=== PATIENT | male | born 1940 | race Caucasian/White ===

== ENCOUNTER → 2017-08-20 | Outpatient (CLI) | payer MEDICARE ==
[~2017-08-20] MED LIST: ASPI-1197 PO; CALC-1062 PO; EZET1TAB17 PO; GLUCOSAMINE CHONDRO PO; LISI10TA7 PO; METO25TA6 PO; PANT40TA25 PO; TAMS0.4C32 PO; [UNRECOGNIZED DRUG - OTHER] PO
[2017-08-20 16:17] LABS: BASOPHILS % (AUTO) 0.5 % (0.0-5.0); HEMATOCRIT 32.7 % (42-54); MEAN CORPUSCULAR HEMOGLOBIN 30.9 pg (27.0-33.0); MEAN CORPUSCULAR HGB CONC 34.9 g/dL (32.0-36.0); MEAN CORPUSCULAR VOLUME 88.4 fL (79-99); MONOCYTES % (AUTO) 9.9 % (3.0-13.0); NEUTROPHILS % (AUTO) 74.6 % (40.0-77.0); PLATELET COUNT (AUTO) 317 K/uL (130-400); RED CELL DISTRIBUTION WIDTH 16.2 % (11.0-15.5); WHITE BLOOD COUNT (AUTO) 5.2 K/uL (4.8-10.8)
[2017-08-20 16:17] LABS: APPEARANCE,URINE Clear (CLEAR); BILIRUBIN,URINE Negative (NEGATIVE); COLOR,URINE Yellow (YELLOW); GLUCOSE, URINE (UA) Negative (NEGATIVE); KETONES,URINE Negative (NEGATIVE); LEUKOCYTE ESTERASE ,URINE Negative (NEGATIVE); NITRATE,URINE Negative (NEGATIVE); OCCULT BLOOD,URINE Negative (NEGATIVE); PROTEIN,URINE Negative (NEGATIVE)
[2017-08-20 16:24] LABS: CREATININE 0.9 mg/dL (0.5-1.5); POTASSIUM 4.7 mmol/L (3.5-5.1)
== END ==
LOC: LAB 15:18
PROVIDERS: ATTEND Internal Medicine Cardiovascular Disease
DX: E78.5 Hyperlipidemia, unspecified (principal)
CPT/HCPCS: 36415; 80048; 81003; 82043; 84443; 85025; 93005

== ENCOUNTER → 2017-08-31 | Outpatient (CLI) | payer MEDICARE ==
[2017-08-31 17:05] LABS: BASOPHILS % (AUTO) 0.4 % (0.0-5.0); EOSINOPHILS % (AUTO) 2.8 % (0.0-8.0); HEMATOCRIT 35.1 % (42-54); LYMPHOCYTES % (AUTO) 14.3 % (21.0-51.0); MEAN CORPUSCULAR HGB CONC 34.9 g/dL (32.0-36.0); MONOCYTES % (AUTO) 11.7 % (3.0-13.0); NEUTROPHILS % (AUTO) 70.8 % (40.0-77.0); NUCLEATED RED BLOOD CELLS 0.1 % (0.0-0.19); PLATELET COUNT (AUTO) 328 K/uL (130-400); RED BLOOD CELL COUNT(AUTO) 3.95 MIL/uL (4.50-6.20); RED CELL DISTRIBUTION WIDTH 16.2 % (11.0-15.5); WHITE BLOOD COUNT (AUTO) 5.1 K/uL (4.8-10.8)
[2017-08-31 17:17] LABS: CREATININE 0.8 mg/dL (0.5-1.5); POTASSIUM 4.6 mmol/L (3.5-5.1)
== END ==
LOC: LAB 16:40
PROVIDERS: ATTEND Family Medicine
DX: E87.1 Hypo-osmolality and hyponatremia (principal)
CPT/HCPCS: 36415; 80048; 85025

== ENCOUNTER 2018-01-24 00:17 | Emergency (ER) | payer MEDICARE ==
[2018-01-24] MEDS ORDERED: OXYMETAZOLINE HCL SPRAY 15 ML BOTTLE ONE (00:31)
== END 2018-01-24 17:40 | disposition home or self-care (01) ==
LOC: EDH 00:17
DX: R04.0 Epistaxis (principal); E78.5 Hyperlipidemia, unspecified; I10 Essential (primary) hypertension
CPT/HCPCS: 30901

== ENCOUNTER 2018-09-17 19:12 | Emergency (ER) | payer MEDICARE | END 2018-09-17 21:25 | disposition home or self-care (01) | LOC: EDH 19:12 | DX: S62.662A Nondisplaced fracture of distal phalanx of right middle finger, initial encounter for closed fracture (principal); I10 Essential (primary) hypertension; E78.5 Hyperlipidemia, unspecified; Z90.49 Acquired absence of other specified parts of digestive tract; W18.39XA Other fall on same level, initial encounter; Y93.01 Activity, walking, marching and hiking; Y92.89 Other specified places as the place of occurrence of the external cause; Y99.8 Other external cause status | CPT/HCPCS: 73130 ==

== ENCOUNTER 2025-02-16 23:41 | Emergency (ER) | payer MEDICARE ==
[~2025-02-16] VITALS: Ht 165.1 cm; Wt 71.2 kg
[~2025-02-16 23:41] MED LIST changes: +EZET-80 PO; -EZET1TAB17 PO; +LISI10TA24 PO; -LISI10TA7 PO; -PANT40TA25 PO; +PANT40TA54 PO
--- NOTE | 2025-02-17 00:10 | ERN ---
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 He can talk with the passing your valve in his alert and oriented. He comes in because he was using his feeding jejunostomy tube as usual with the pump when he had severe emesis of undiluted tube feeds. He comes in to see if the tube is clogged. He has no other systemic complaints. Allergies: Coded Allergies: No Known Drug Allergies (Unverified Allergy, Unknown, 01/15/16) Home Meds Reported Medications [Glucosamine Chondro] No Conflict Check, 1 TBS PO BID 01/15/16 Calcium Carbonate/Vitamin D3 (Caltrate 600 + D Soft Chew Tab) 1 Each Tab.chew, 1 EACH PO BID, TAB.CHEW 01/15/16 [Centrum Vit] No Conflict Check, 1 CAP PO BID 01/15/16 Aspirin (Aspirin) 81 Mg Tab.chew, 81 MG PO DAILY, TAB.CHEW 01/15/16 Lisinopril (Lisinopril) 10 Mg Tablet, 10 MG PO BID, TAB 01/15/16 Ezetimibe/Simvastatin (Vytorin 10-20 mg Tablet) 1 Each Tablet, 1 EACH PO DAILY, TAB 01/15/16 Tamsulosin HCl (Tamsulosin HCl) 0.4 Mg Cap.er.24h, 0.4 MG PO HS, CAPSULE.DR 01/15/16 Metoprolol Tartrate (Metoprolol Tartrate) 25 Mg Tablet, 25 MG PO BID, TAB 01/15/16 Pantoprazole Sodium (Pantoprazole Sodium) 40 Mg Tablet.dr, 40 MG PO BID, TAB 01/15/16 Past Medical History Past Medical History: Other Medical History Other: THROAT CA Past Surgical History: Other Surgical History Other: TRACH, PEG tube converted to a J-tube EENTM: (-) eye pain, (-) blurred vision, (-) tearing, (-) double vision, (-) ear pain, (-) ear discharge, (-) nose pain, (-) nose congestion, (-) throat pain, (-) Throat swelling, (-) mouth pain, (-) tooth pain, (-) mouth swelling, (-) other documentation Respiratory: (+) cough Cardiovascular: (-) chest pain, (-) edema, (-) palpitations, (-) syncope, (-) dyspnea on exertion, (-) other documentation Gastrointestinal/Abdominal: (+) vomiting Genitourinary: (-) penile discharge, (-) dysuria, (-) frequency, (-) hematuria, (-) pain, (-) other documentation Musculoskeletal: (-) Neck pain, (-) back pain, (-) Flank Pain, (-) joint pain, (-) joint swelling, (-) muscle pain, (-) muscle stiffness, (-) gout, (-) other documentation Physical Exam General Appearance: (+) mild distress Orientation: (+) alert, (+) oriented x 3 Head/Face Trauma: No Eye: bilateral eye normal inspection, bilateral eye PERRL, bilateral eye EOMI Ear, Nose, Throat: (+) hearing grossly normal Ear, Nose, Throat Comment Tracheostomy tube in place with a Passy Lisa valve. Tissue surrounding the tracheostomy tube are healthy. Neck: (+) normal inspection, (+) supple, (+) full range of motion Respiratory: (+) chest non-tender, (+) lungs clear, (+) well ventilated Heart: (+) regular, (+) no gallop Vascular: (+) no edema, (+) normal peripheral pulse Gastrointestinal: (+) soft, (+) non-tender Gastrointestinal Comment Feeding jejunostomy tube in place surrounding tissues healthy. Results Laboratory and Microbiology Lab and Micro Result Laboratory Tests Test 02/17/25 00:42 White Blood Count 7.0 K/uL (4.8-10.8) Red Blood Count 3.22 MIL/uL (4.50-6.20) L Hemoglobin 10.9 g/dL (14.0-18.0) L Hematocrit 34.3 % (42-54) L Mean Corpuscular Volume 106.5 fL (79-99) H Mean Corpuscular Hemoglobin 33.9 pg (27.0-33.0) H Mean Corpuscular Hemoglobin Concent 31.8 g/dL (32.0-36.0) L Red Cell Distribution Width 14.9 % (11.0-15.5) Platelet Count 203 K/uL (130-400) Mean Platelet Volume 10.9 fL (7.5-10.5) H Immature Granulocyte % (Auto) 0.3 % (0-1) Neutrophils (%) (Auto) 89.0 % (40.0-77.0) H Lymphocytes (%) (Auto) 5.6 % (21.0-51.0) L Monocytes (%) (Auto) 4.9 % (3.0-13.0) Eosinophils (%) (Auto) 0.1 % (0.0-8.0) Basophils (%) (Auto) 0.1 % (0.0-5.0) Neutrophils # (Auto) 6.2 K/uL (1.8-7.7) Lymphocytes # (Auto) 0.4 K/uL (1.0-4.8) L Monocytes # (Auto) 0.3 K/uL (0.1-1.0) Eosinophils # (Auto) 0.01 K/uL (0.00-0.70) Basophils # (Auto) 0.01 K/uL (0.00-0.20) Absolute Immature Granulocyte (auto 0.02 K/uL (0-1) Nucleated Red Blood Cells 0.0 % (0.0-0.19) White Cell Morphology Comment See comments Red Blood Cell Morphology See comments Sodium Level 144 mmol/L (136-145) Potassium Level 4.1 mmol/L (3.5-5.1) Chloride Level 107 mmol/L (101-111) Carbon Dioxide Level 32 mmol/L (21-32) Blood Urea Nitrogen 52 mg/dL (7-18) H Creatinine 0.9 mg/dL (0.5-1.3) Glomerular Filtration Rate Calc 84 mL/min (>90) Random Glucose 105 mg/dL (70-105) Total Calcium 8.3 mg/dL (8.5-10.1) L MDM MDM: Differential diagnosis: Clogged jejunostomy feeding tube or small bowel obstruction gastroenteritis Rationale: Tests considered and ordered secondary to shared decision making include: Previous outside records reviewed: Old ER visits. Risk of complication and/or morbidity or mortality of patient management: None Medications-Per medication reconciliation Need for hospitalization: Patient does meet criteria for hospitalization. Need for emergency major/minor surgery: No There are no social concerns with this patient. Prescription drug management Prescriptions will include symptomatic care Patient's prior external medical records from other ER visits were reviewed by me as indicated. Prior testing and results from previous visits were reviewed. Prior tests were taken into account with medical decision making and resource utilization, independent historian/historians were used to obtain complete medical history. I independently interpreted the test that were performed, results were reviewed by me and considered findings on radiology if ordered. CT scan of the patient's abdomen shows good flow of the contrast from the patient's feeding jejunostomy tube down through his jejunum and ileum. The CT scan does show an extremely large stool burden. Patient's laboratory studies show a normal white blood cell count and mild anemia. Chemistry panel shows an elevated BUN with a normal creatinine. ED Course Orders Procedure Category Date Status Time Basic Metabolic Panel LAB 02/17/25 Complete 00:02 Cbc With Differential LAB 02/17/25 Complete 00:02 Ct Abdomen/Pelvis CT 02/17/25 Taken W/Wo Contras 00:02 Urinalysis Profile LAB 02/17/25 Logged 00:12 Respiratory Cult ELIGIO 02/17/25 In Process W/Gram Stain 00:41 Diatr PHA 02/17/25 Complete Meglu/Diatrizoate 01:08 Glycopyrrolate PHA 02/17/25 Complete (Robinul) 01:30 Glycopyrrolate PHA 02/17/25 Complete (Robinul) 02:00 Glycopyrrolate PHA 02/17/25 Complete (Robinul) 02:00 Iohexol (Omnipaque) PHA 02/17/25 Complete 01:54 Current Medications Medications (Trade) Dose Ordered Sig/Bertha Route PRN Reason Start Time Stop Time Status Last Admin Dose Admin Diatrizoate Meglum/ Diatrizoate Sod (Gastrografin 66-10 Solution) 30 ml STK-MED ONCE .ROUTE 02/17/25 01:08 02/17/25 01:09 DC Glycopyrrolate (Robinul) 0.4 mg ONCE ONCE IVP 02/17/25 02:00 02/17/25 02:01 DC 02/17/25 02:02 Glycopyrrolate (Robinul) 1 mg ONCE IVP 02/17/25 01:30 02/17/25 01:45 DC Glycopyrrolate (Robinul) 1 mg ONCE ONCE IVP 02/17/25 02:00 02/17/25 01:47 DC Iohexol (Omnipaque) 35,000 mg STK-MED ONCE IV 02/17/25 01:54 02/17/25 01:54 DC Vital Signs Date Time Temp Pulse Resp B/P (MAP) Pulse Ox O2 Delivery O2 Flow Rate FiO2 02/17/25 01:25 81 19 Nasal Cannula 2.0 28 02/17/25 00:18 98.4 76 17 135/66 94 Nasal Cannula* 2 28 02/16/25 23:43 98.6 82 20 140/68 93 Room Air DX & DISP Disposition: Discharge Departure Impression: Primary Impression: Emesis, persistent Condition: Stable Scripts Magnesium Citrate (Magnesium Citrate) 296 Ml Solution 296 ML PO ONCE for 1 Day, #296 ML 0 Refills Prov: STEPHENIE RODRIGUEZ MD 02/17/25 Additional Instructions: I do not have a good explanation for your emesis while you were getting fed tonight. It could be dehydration. It could be a gastroenteritis of viral infection. I do not think it was a clogged feeding tube. You do have a large stool burden throughout your entire large colon. That may have been the cause as well. I have written a prescription for magnesium citrate. Another recommendation would be GoLYTELY, it is a powder that you put in a liquid and drink each night before you go to bed. This helps you have regular bowel movements. Referrals: KARINA RUELAS MD (PCP) STEPHENIE RODRIGUEZ MD Feb 17, 2025 00:09
[2025-02-17 00:49] LABS: IMMATURE GRANULOCYTE ABSOLUTE 0.02 K/uL (0-1); NUCLEATED RED BLOOD CELLS 0.0 % (0.0-0.19); PLATELET COUNT (AUTO) 203 K/uL (130-400); RED BLOOD CELL COUNT(AUTO) 3.22 MIL/uL (4.50-6.20); RED CELL DISTRIBUTION WIDTH 14.9 % (11.0-15.5); WHITE BLOOD COUNT (AUTO) 7.0 K/uL (4.8-10.8)
[2025-02-17 00:58] LABS: CREATININE 0.9 mg/dL (0.5-1.3); GLOMERULAR FILTR. RATE CALC 84.0 mL/min (>90); GLUCOSE,RANDOM 105.0 mg/dL (70-105); SODIUM SERUM 144.0 mmol/L (136-145); UREA NITROGEN, BLOOD 52.0 mg/dL (7-18)
[2025-02-17] MEDS ORDERED: DIATR MEGLU/DIATRIZOATE SODIUM 30 ML BOTTLE ONE (01:08)
[2025-02-17 01:25] VITALS: PULSE 81; RESP 19; O2SAT 95
[2025-02-17] MEDS ORDERED: GLYCOPYRROLATE 0.2 MG/ML 5 ML VIAL IVP SCH (01:30)
--- NOTE | 2025-02-17 01:35 | NUR ---
PT AT BEDSIDE WITH REPORTED J-TUBE. ED MD AT BEDSIDE AND PREFORMED J-TUBE FLUSH WITHOUT DIFFICULTY. CLEAR FLUSH RETURN NOTED. PT TOLERATED PROCEDURE WELL WITHOUT ANY SIGNS OF DISCOMFORT OR COMPLICATION. RN PRESENTED DURING PROCEDURE.
[2025-02-17] MEDS ORDERED: IOHEXOL 350 MG/ML 100ML INFUS..BTL IV ONE (01:54)
[2025-02-17] MEDS ORDERED: GLYCOPYRROLATE 0.2 MG/ML 5 ML VIAL IVP ONE (02:00)
[2025-02-17] MEDS: GLYCOPYRROLATE 0.2 MG/ML 5 ML VIAL IVP ONE (02:02)
[2025-02-17] MEDS ORDERED: MAGN296S73 PO (02:46)
[2025-02-17 03:31] VITALS: BP 117/77; PULSE 67; RESP 16; TEMP 98; O2SAT 93
--- NOTE | 2025-02-17 03:31 | HMCIMG ---
EXAM: CT Abdomen and Pelvis without and with IV contrast CLINICAL HISTORY: Clogged J-tube. TECHNIQUE: Pre and post-contrast thin collimated axial CT images of the abdomen and pelvis were obtained with sagittal and coronal reformatted images also submitted. CT scan is done according to ALARA (As Low As Reasonably Achievable). COMPARISON: None. FINDINGS: Symmetrical dependent atelectasis in infiltrates in the bilateral posterior basal lungs. No focal abnormality within the liver, gallbladder, pancreas, spleen, adrenals, or kidneys. Mild chronic cystitis. Unremarkable prostate. Small, uncomplicated fat-containing left inguinal hernia. A percutaneous jejunostomy tube is in place. Surgical clips are present around the proximal stomach. No significant bowel dilatation, thickening, or obstruction. A component of mild constipation is present in the colon. Uncomplicated colonic diverticula. The appendix is not visualized. Calcific atherosclerotic disease in the abdominal aorta and its branches. No pathological lymphadenopathy in the abdomen or pelvis. No ascites or pneumoperitoneum. No acute bony abnormality is evident. Degenerative osseous changes. IMPRESSIONS: A percutaneous jejunostomy tube is in place; there is no focal kink or breach evident within the tube. Surgical clips are present around the proximal stomach. No significant bowel dilatation, thickening, or obstruction. A component of mild constipation is present in the colon. Uncomplicated colonic diverticula. Mild chronic cystitis. Symmetrical dependent atelectasis in infiltrates in the bilateral posterior basal lungs. /[place]
== END 2025-02-17 03:35 | disposition home or self-care (01) ==
LOC: EDH 23:41
DX: N30.20 Other chronic cystitis without hematuria (principal); K57.30 Diverticulosis of large intestine without perforation or abscess without bleeding; E78.00 Pure hypercholesterolemia, unspecified; I10 Essential (primary) hypertension; Z79.899 Other long term (current) drug therapy; Z98.890 Other specified postprocedural states
CPT/HCPCS: 99285; 80048; 85025; 87086 ×3; 87186 ×3; 87205; 36415; 87071; 74178; 96374; Q9963; J3490 ×2; Q9967

== ENCOUNTER 2025-02-17 21:47 | Emergency (ER) | payer MEDICARE ==
[~2025-02-17] VITALS: Ht 165.1 cm; Wt 70.8 kg
[~2025-02-17 21:47] MED LIST changes: +MAGN296S73 PO
[2025-02-17 21:48] VITALS: TEMP 97.7
[2025-02-17] MEDS: MAGNESIUM CITRATE 296 ML SOLUTION PO ONE (22:22)
--- NOTE | 2025-02-17 22:35 | ERN ---
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 He was seen in the emergency room last night because when he connected himself to his feeding tube pump he experience nausea and vomiting. Workup yesterday showed a very large stool burden but his intestines were not obstructed in his J-tube was patent. Patient was discharged with magnesium citrate. He comes back to the emergency room today because he has not had a bowel movement despite the magnesium citrate and he has been afraid to try and feed himself. Since yesterday he has had no nausea or vomiting. And he was able to take his regular medications without problems. Allergies: Coded Allergies: No Known Drug Allergies (Unverified Allergy, Unknown, 01/15/16) Home Meds Active Scripts Magnesium Citrate (Magnesium Citrate) 296 Ml Solution, 296 ML PO ONCE for 1 Day, #296 ML 0 Refills Prov:STEPHENIE RODRIGUEZ MD 02/17/25 Reported Medications [Glucosamine Chondro] No Conflict Check, 1 TBS PO BID 01/15/16 Calcium Carbonate/Vitamin D3 (Caltrate 600 + D Soft Chew Tab) 1 Each Tab.chew, 1 EACH PO BID, TAB.CHEW 01/15/16 [Centrum Vit] No Conflict Check, 1 CAP PO BID 01/15/16 Aspirin (Aspirin) 81 Mg Tab.chew, 81 MG PO DAILY, TAB.CHEW 01/15/16 Lisinopril (Lisinopril) 10 Mg Tablet, 10 MG PO BID, TAB 01/15/16 Ezetimibe/Simvastatin (Vytorin 10-20 mg Tablet) 1 Each Tablet, 1 EACH PO DAILY, TAB 01/15/16 Tamsulosin HCl (Tamsulosin HCl) 0.4 Mg Cap.er.24h, 0.4 MG PO HS, CAPSULE. 01/15/16 Metoprolol Tartrate (Metoprolol Tartrate) 25 Mg Tablet, 25 MG PO BID, TAB 01/15/16 Pantoprazole Sodium (Pantoprazole Sodium) 40 Mg Tablet., 40 MG PO BID, TAB 01/15/16 Past Medical History Past Medical History: Other Medical History Other: THROAT/HEAD CA,TRACH Past Surgical History: Other Surgical History Other: TRACH, PEG tube converted to a J-tube ROS Dictation Review of systems are negative. Physical Exam General Appearance: (+) no apparent distress Orientation: (+) alert, (+) oriented x 3 Gastrointestinal: (+) soft, (+) non-tender, (+) bowel sound present MDM Patient is here because he is afraid to eat food until he has had a bowel movement. I will order a KUB to be sure that the dye we injected into his J- tube yesterday has advanced all the way into his large bowel. And I will give him another dose of magnesium citrate. KUB shows oral contrast from yesterday in the rectum. And mostly air throughout his large colon. Small loops of bowel are also air filled as well. Patient has defecated and would like to go home. He is having some abdominal cramping but it is not too bad. KUB shows no free air. ED Course Orders Procedure Category Date Status Time Magnesium Citrate PHA 02/17/25 Complete (Magnesium Citrate) 22:30 Abd 1vw RAD 02/17/25 Resulted 22:29 Current Medications Medications (Trade) Dose Ordered Sig/Bertha Route PRN Reason Start Time Stop Time Status Last Admin Dose Admin Magnesium Citrate (Magnesium Citrate) 296 ml ONCE ONCE PO 02/17/25 22:30 02/17/25 22:31 DC 02/17/25 22:22 Vital Signs Date Time Temp Pulse Resp B/P (MAP) Pulse Ox O2 Delivery O2 Flow Rate FiO2 02/17/25 23:03 75 16 155/85 94 Room Air* 0 21 02/17/25 21:48 97.7 91 20 139/79 91 Room Air DX & DISP Disposition: Discharge Departure Impression: Primary Impression: Constipation Condition: Stable Additional Instructions: I recommend GoLYTELY each night to help with regularity. It is a powder you can buy [id number] at any drug store. When you take it please drink a lot of water with a it and I recommend taking a half dose only for now. Please follow- up with your regular primary care physician for further advice on managing your bowel movements. Referrals: IVA ARAIZA MD (PCP) STEPHENIE RODRIGUEZ MD Feb 17, 2025 22:35
[2025-02-17 23:03] VITALS: BP 155/85; PULSE 75; RESP 16; O2SAT 94
--- NOTE | 2025-02-17 23:37 | HMCIMG ---
EXAM: CR Abdomen, 2 views. CLINICAL HISTORY: Constipation. COMPARISON: None. FINDINGS: Nonobstructed nonspecific bowel gas pattern. A component of mild constipation is present in the colon. A percutaneous gastrojejunostomy tube overlies the abdomen. Excreted contrast is present within the urinary bladder. No free air is evident. No abnormal calcification. No aggressive appearing osseous lesion. IMPRESSION: No acute process. Nonobstructed nonspecific bowel gas pattern. A component of mild constipation is present in the colon. A percutaneous gastrojejunostomy tube overlies the abdomen. Excreted contrast is present within the urinary bladder. /[place]
== END 2025-02-18 00:36 | disposition home or self-care (01) ==
LOC: EDH 21:47
DX: K59.00 Constipation, unspecified (principal); Z79.82 Long term (current) use of aspirin; Z79.899 Other long term (current) drug therapy; Z98.890 Other specified postprocedural states
CPT/HCPCS: 74018; 99284

== ENCOUNTER 2025-02-20 00:13 | Emergency (ER) | payer MEDICARE ==
[~2025-02-20] VITALS: Ht 165.1 cm; Wt 70.3 kg
--- NOTE | 2025-02-20 00:19 | NUR ---
REPORT TO RACHEL KIM
--- NOTE | 2025-02-20 00:46 | ERN ---
General Chief Complaint: Gi Problem Stated Complaint: J TUBE REPLACEMENT Time Seen by MD: 00:30 History of Present Illness Initial Comments Patient with a J-tube noted that it had come dislodged in the balloon was outside of his abdominal wall. He come to the emergency room to have it repaired. He arrives with a J-tube taped in place and the balloon just sitting outside of the mucosa and resting on the abdominal wall. Patient noted that he was able to tolerate his tube feeds well prior to the J- tube coming out. Allergies: Coded Allergies: No Known Drug Allergies (Unverified Allergy, Unknown, 01/15/16) Home Meds Active Scripts Magnesium Citrate (Magnesium Citrate) 296 Ml Solution, 296 ML PO ONCE for 1 Day, #296 ML 0 Refills Prov:STEPHENIE RODRIGUEZ MD 02/17/25 Reported Medications [Glucosamine Chondro] No Conflict Check, 1 TBS PO BID 01/15/16 Calcium Carbonate/Vitamin D3 (Caltrate 600 + D Soft Chew Tab) 1 Each Tab.chew, 1 EACH PO BID, TAB.CHEW 01/15/16 [Centrum Vit] No Conflict Check, 1 CAP PO BID 01/15/16 Aspirin (Aspirin) 81 Mg Tab.chew, 81 MG PO DAILY, TAB.CHEW 01/15/16 Lisinopril (Lisinopril) 10 Mg Tablet, 10 MG PO BID, TAB 01/15/16 Ezetimibe/Simvastatin (Vytorin 10-20 mg Tablet) 1 Each Tablet, 1 EACH PO DAILY, TAB 01/15/16 Tamsulosin HCl (Tamsulosin HCl) 0.4 Mg Cap.er.24h, 0.4 MG PO HS, CAPSULE. 01/15/16 Metoprolol Tartrate (Metoprolol Tartrate) 25 Mg Tablet, 25 MG PO BID, TAB 01/15/16 Pantoprazole Sodium (Pantoprazole Sodium) 40 Mg Tablet.dr, 40 MG PO BID, TAB 01/15/16 Past Medical History Past Medical History: Other Medical History Other: THROAT/HEAD CA,TRACH Past Surgical History: Other Surgical History Other: TRACH, PEG tube converted to a J-tube ROS Dictation Review of systems is otherwise negative. MDM I deflated the balloon and reinserted the J-tube into the patient's intestines and inflated the balloon. This caused a lot of pain so I deflated the balloon and I repositioned the collar so that the J-tube could be inserted further into the patient's GI tract and then reinflated the balloon. I will get a KUB with Gastrografin to confirm good placement. KUB after Gastrografin injection into the patient's J-tube shows that the tube is in good position and there was good contrast flowing into his jejunum. ED Course Orders Procedure Category Date Status Time Abd 1vw RAD 02/20/25 Logged 00:47 Diatr PHA 02/20/25 Complete Meglu/Diatrizoate 00:56 Current Medications Medications (Trade) Dose Ordered Sig/Bertha Route PRN Reason Start Time Stop Time Status Last Admin Dose Admin Diatrizoate Meglum/ Diatrizoate Sod (Gastrografin 66-10 Solution) 30 ml STK-MED ONCE .ROUTE 02/20/25 00:56 02/20/25 00:57 DC Vital Signs Date Time Temp Pulse Resp B/P (MAP) Pulse Ox O2 Delivery O2 Flow Rate FiO2 02/20/25 00:37 76 16 117/62 94 Room Air* 0 21 02/20/25 00:15 98.1 86 20 153/64 93 Room Air DX & DISP Disposition: Discharge Departure Impression: Primary Impression: Jejunostomy tube fell out Condition: Stable Additional Instructions: Your J-tube is back in a good position. Please see your primary care doctor or GI doctor or come back to the emergency room if you have problems with a it in the future. Right now it seems like the button is in a good position when it is at the 4 cm aubrey. Referrals: IVA ARAIZA MD (PCP) STEPHENIE RODRIGUEZ MD Feb 20, 2025 00:46
[2025-02-20] MEDS ORDERED: DIATR MEGLU/DIATRIZOATE SODIUM 30 ML BOTTLE ONE (00:56)
[2025-02-20 01:27] VITALS: BP 129/53; PULSE 84; RESP 16; TEMP 98.2; O2SAT 92
--- NOTE | 2025-02-20 02:09 | HMCIMG ---
EXAM: CR Abdomen CLINICAL HISTORY: Dislodged G-tube. COMPARISON: Radiograph of the abdomen dated 02/17/2025. FINDINGS: The percutaneous gastrojejunostomy tube tip overlies the proximal jejunum, the positive contrast injected through the tube opacifies the stomach and proximal small bowel. No contrast leakage or perforation is evident. The features are compatible with a satisfactory position of the PEG tube within the stomach. Nonobstructed nonspecific bowel gas pattern. No free air is evident. No abnormal calcification. No aggressive appearing osseous lesion. IMPRESSION: Satisfactory position of the percutaneous gastrojejunostomy tube with tip around the proximal jejunum. No gross interval changes. /[place]
== END 2025-02-20 01:32 | disposition home or self-care (01) ==
LOC: EDH 00:13
DX: Z43.4 Encounter for attention to other artificial openings of digestive tract (principal); Z79.899 Other long term (current) drug therapy; Z79.82 Long term (current) use of aspirin
CPT/HCPCS: 74018; 99283; Q9963

== ENCOUNTER 2025-02-23 16:01 | Emergency (ER) | payer MEDICARE ==
[~2025-02-23] VITALS: Ht 165.1 cm; Wt 70.3 kg
--- NOTE | 2025-02-23 16:17 | ERN ---
ED Note History of Present Illness Stated Complaint: PEG TUBE ISSUE Chief Complaint: Other Problems Time Seen by MD: 16:15 Dictation: PATIENT IS AN 84-YEAR-OLD MALE COMING IN FROM LOCAL [facility] OFFICE WITH COMPLAINTS OF POSSIBLE DISPLACEMENT OF HIS JEJUNOSTOMY FEEDING TUBE. HE HAS CANCER AND IS DEPENDENT ON HIS JEJUNOSTOMY FOR MEDS AND FEEDINGS. PATIENT HAD REPLACED AT [facility] ON THURSDAY WITH POSITION VERIFIED BY GASTROGRAFIN STUDY KUB. PER THE , IT HAS BEEN FEEDING JUST FINE FOR THE LAST COUPLE OF DAYS AND THEN LAST NIGHT PATIENT FELT LIKE IT WAS OUT OF POSITION. NO NAUSEA VOMITING. Allergies: Coded Allergies: No Known Drug Allergies (Unverified Allergy, Unknown, 01/15/16) Home Meds Active Scripts Magnesium Citrate (Magnesium Citrate) 296 Ml Solution, 296 ML PO ONCE for 1 Day, #296 ML 0 Refills Prov:STEPHENIE RODRIGUEZ MD 02/17/25 Reported Medications [Glucosamine Chondro] No Conflict Check, 1 TBS PO BID 01/15/16 Calcium Carbonate/Vitamin D3 (Caltrate 600 + D Soft Chew Tab) 1 Each Tab.chew, 1 EACH PO BID, TAB.CHEW 01/15/16 [Centrum Vit] No Conflict Check, 1 CAP PO BID 01/15/16 Aspirin (Aspirin) 81 Mg Tab.chew, 81 MG PO DAILY, TAB.CHEW 01/15/16 Lisinopril (Lisinopril) 10 Mg Tablet, 10 MG PO BID, TAB 01/15/16 Ezetimibe/Simvastatin (Vytorin 10-20 mg Tablet) 1 Each Tablet, 1 EACH PO DAILY, TAB 01/15/16 Tamsulosin HCl (Tamsulosin HCl) 0.4 Mg Cap.er.24h, 0.4 MG PO HS, CAPSULE.DR 01/15/16 Metoprolol Tartrate (Metoprolol Tartrate) 25 Mg Tablet, 25 MG PO BID, TAB 01/15/16 Pantoprazole Sodium (Pantoprazole Sodium) 40 Mg Tablet.dr, 40 MG PO BID, TAB 01/15/16 Past Medical History Past Medical History: A-Fib, Other Additional Past Medical Hx: throat ca, trach Surgical History: Other Surgical History Other: trach and j tube insertion RN Note Reviewed/Agreed w/PFSH: Yes Review of System Dictation CONSTITUTIONAL: NEGATIVE EXCEPT FOR HPI HEAD/FACE: NEGATIVE EXCEPT FOR HPI EENT: NEGATIVE EXCEPT FOR HPI RESPIRATORY: NEGATIVE EXCEPT FOR HPI GASTROINTESTINAL/ABDOMINAL: NEGATIVE EXCEPT FOR HPI J-TUBE TO STOMA WITH DRESSING GENITOURINARY: NEGATIVE EXCEPT FOR HPI MUSCULOSKELETAL: NEGATIVE EXCEPT FOR HPI INTEGUMENTARY: NEGATIVE EXCEPT FOR HPI NEUROLOGICAL/PSYCH: NEGATIVE EXCEPT FOR HPI HEMATOLOGIC/LYMPHATIC: NEGATIVE EXCEPT FOR HPI ALL SYSTEMS NEGATIVE, EXCEPT NOTED ABOVE. 13 POINT REVIEW OF SYSTEMS ASSESSED AND ALL NEGATIVE EXCEPT FOR ABOVE. Initial Vital Sign VS Vital Signs Date Time Temp Pulse Resp B/P (MAP) Pulse Ox O2 Delivery O2 Flow Rate FiO2 02/23/25 16:02 97.2 97 18 149/71 93 Room Air 0 02/23/25 16:07 21 Physical Exam Dictation VITAL SIGNS REVIEWED GENERAL APPEARANCE: ALERT, ORIENTED X 3, NO ACUTE DISTRESS, WELL DEVELOPED, NOURISHED. HEAD AND FACE: NON-TRAUMATIC. EYES: PERRL, PINK CONJUNCTIVAS, EYELID NO TRAUMA, ANTERIOR CHAMBER WITH ARCUS SENILIS. EARS: PINNAS INTACT AND NO SIGNS OF TRAUMA OR ERYTHEMA EAR CANALS CLEAR AND NO DISCHARGE TM NO ERYTHEMA NOSE: NO DISCHARGE, NO BLEEDING. OROPHARYNX: MOUTH NORMAL, TONGUE PINK, PHARYNX CLEAR,NO ERYTHEMA, TONSILS NO EXUDATES, NO ABSCESSES NOTED, MUCOUS MEMBRANE MOIST NECK: SUPPLE, NON-TENDER, NO THYROMEGALY, NO MASSES, NO JVD, NO BRUITS BREAST:DEFERRED CHEST:NO TENDERNESS, NO CREPITUS, NO PARADOXICAL MOVEMENT, NO RETRACTIONS LUNGS:CLEAR, WELL-VENTILATED, SYMMETRIC, NO RALES, NO WHEEZING, NO RHONCHI, NO STRIDOR, GOOD BREATH SOUNDS BILATERALLY HEART: REGULAR RATE, REGULAR RHYTHM, NO MURMUR, NO GALLOPS VASCULAR: NO PERIPHERAL EDEMA, ABDOMEN: SOFT, POSITIVE BOWEL SOUNDS, NONDISTENDED, NO GUARDING, NONTENDER, NO REBOUND, NO MASSES NO HEPATOMEGALY, NO SPLENOMEGALY, NO LINDA'S SIGN, NO HERNIAS. J-TUBE TO LEFT UPPER QUADRANT STOMA DRESSING IN PLACE NO ERYTHEMA RECTAL: DEFERRED GENITAL: DEFERRED NEUROLOGICAL: NORMAL SPEECH, MOTOR FUNCTION INTACT, SENSORY FUNCTION INTACT MUSCULOSKELETAL: NECK NONTENDER, FULL RANGE OF MOTION, BACK NONTENDER, FULL RA NGE OF MOTION, EXTREMITIES: NONTENDER, FULL RANGE OF MOTION SKIN: COLOR PINK, DRY, NO TURGOR, NO RASH, NO LACERATIONS, NO ABRASIONS, NO CONTUSIONS. LYMPHATIC: DEFERRED Results (Laboratory/Radiology) Laboratory/Radiology 193/JEJUNOSTOMY IN PLACE KUB READ BY Labs Reviewed?: Yes ED Course ED Course Orders Procedure Category Date Status Time Abd 1vw RAD 02/23/25 Taken 16:16 Diatr PHA 02/23/25 Complete Meglu/Diatrizoate 18:48 Current Medications Medications (Trade) Dose Ordered Sig/Bertha Route PRN Reason Start Time Stop Time Status Last Admin Dose Admin Diatrizoate Meglum/ Diatrizoate Sod (Gastrografin 66-10 Solution) 30 ml STK-MED ONCE .ROUTE 02/23/25 18:48 02/23/25 18:48 DC Vital Signs Date Time Temp Pulse Resp B/P (MAP) Pulse Ox O2 Delivery O2 Flow Rate FiO2 02/23/25 19:32 97.2 90 20 128/71 92 Room Air* 0 21 02/23/25 17:11 92 20 149/73 92 Room Air* 0 21 02/23/25 16:07 97.2 97 18 149/71 93 Room Air* 0 21 02/23/25 16:02 97.2 97 18 149/71 93 Room Air 0 5/SPOKE WITH THE [facility]. I ASKED IF I COULD GET A READING FROM THE RADIOLOGIST ON THE KUB WITH GASTROGRAFIN TO CHECK FOR JEJUNOSTOMY PLACEMENT SHE WOULD GET BACK Medical Decision Making MDM 1934/MEDICAL DECISION-MAKING BASED ON KUB WITH GASTROGRAFIN TO CHECK PLACEMENT OF JEJUNOSTOMY TUBE. KUB X-RAY READ BY PATIENT DISCHARGED HOME WITH TO RESUME ALL MEDS AND FEEDINGS THROUGH JEJUNOSTOMY TUBE. DX & DISP Disposition: Discharge Departure Impression: Primary Impression: Jejunostomy tube in situ Condition: Stable Additional Instructions: FOLLOW-UP WITH PRIMARY CARE PROVIDER IN 1 TO 2 DAYS. TAKE MEDICATIONS DIRECTED HERE IN THE EMERGENCY ROOM. OKAY TO CONTINUE HOME MEDICATIONS UNLESS OTHERWISE DISCUSSED DURING YOUR VISIT IN THE EMERGENCY ROOM TODAY. RETURN TO YOUR NEAREST EMERGENCY ROOM IF SYMPTOMS WORSEN OR IF THERE IS NO IMPROVEMENT. CALL 911 IF YOU NEED IMMEDIATE ASSISTANCE. TAKE TYLENOL OR MOTRIN [id number] NEEDED AND IF NO CONTRAINDICATIONS ARE PRESENT. INCREASE ORAL HYDRATION. A WOUND CULTURE OR URINE CULTURE WAS ORDERED HERE IN THE EMERGENCY ROOM DEPARTMENT PLEASE FOLLOW-UP WITH PRIMARY CARE PROVIDER AND ADVISE THEM TO GET REPEAT PORTS FROM OUR FACILITY. IF YOU HAD ANY MARTA WRAP/SPLINTS THAT WERE APPLIED HERE, PLEASE DO NOT REMOVE THEM UNTIL YOU SEE YOUR PRIMARY CARE OR SPECIALTY. MAY RESUME ALL MEDICATIONS AND FEEDINGS THROUGH JEJUNOSTOMY TUBE. Referrals: IVA ARAIZA MD (PCP) Time of Disposition: 19:36 I have reviewed the case, and I agree with, Diagnosis and Plan MI HECTOR NP Feb 23, 2025 16:17
--- NOTE | 2025-02-23 17:13 | NUR ---
PT PRESENTS WITH TRACH TO ROOM AIR ANDBULATES WITH WALKER. PT REPORTS THAT HE FELT LIKE HIS JTUBE WAS NOT IN PROPER PLACE AND WENT O [facility] FOR EVALUATION. ATTMPTS WERE MADE TO FLUSH JTUBE AND THERE WAS TOO MUCH RESISTANCE. PT WAS THEN ADVISED TO COME TO ED.
[2025-02-23] MEDS ORDERED: DIATR MEGLU/DIATRIZOATE SODIUM 30 ML BOTTLE ONE (18:48)
[2025-02-23 19:32] VITALS: BP 128/71; PULSE 90; RESP 20; TEMP 97.2; O2SAT 92
--- NOTE | 2025-02-23 20:15 | HMCIMG ---
EXAM: CR Abdomen, 1 view. CLINICAL HISTORY: PEG tube placement. COMPARISON: Radiograph of the abdomen dated 02/20/2025. FINDINGS: The percutaneous gastrojejunostomy tube tip overlies the proximal jejunum, the positive contrast injected through the tube opacifies the stomach and proximal small bowel. No contrast leakage or perforation is evident. The features are compatible with a satisfactory position of the percutaneous gastrojejunostomy tube within the proximal jejunum. Nonobstructed nonspecific bowel gas pattern. No free air is evident. No abnormal calcification. No aggressive appearing osseous lesion. IMPRESSION: Satisfactory position of the percutaneous gastrojejunostomy tube with tip around the proximal jejunum. No gross interval changes. /[place]
== END 2025-02-23 19:45 | disposition home or self-care (01) ==
LOC: EDH 16:01
DX: K94.20 Gastrostomy complication, unspecified (principal); I48.91 Unspecified atrial fibrillation; Z79.82 Long term (current) use of aspirin; Z79.899 Other long term (current) drug therapy
CPT/HCPCS: 99283; 74018; Q9963